=== PATIENT | male | born 1985 | race Two or more races ===

== ENCOUNTER 2020-01-13 10:07 | Outpatient (CLI) | payer OTHER | END 2020-01-13 10:20 | disposition home or self-care (01) | LOC: SONOGRAMA 10:07 → MAMO-SONO 11:45 | PROVIDERS: ATTEND Obstetrics & Gynecology | DX: P00-P96 Certain conditions originating in the perinatal period (principal) ==

== ENCOUNTER → 2020-11-24 | Outpatient (CLI) | payer OTHER | END | disposition home or self-care (01) | LOC: PRENATAL 08:00 → EDSEX 08:08 | PROVIDERS: ATTEND Obstetrics & Gynecology Maternal & Fetal Medicine | DX: O35.0XX1 Maternal care for (suspected) central nervous system malformation in fetus, fetus 1 (principal); O35.3XX1 Maternal care for (suspected) damage to fetus from viral disease in mother, fetus 1; O98.512 Other viral diseases complicating pregnancy, second trimester; O99.891 Other specified diseases and conditions complicating pregnancy; Z36.89 Encounter for other specified antenatal screening; Z3A.19 19 weeks gestation of pregnancy ==

== ENCOUNTER 2021-04-11 18:05 | Inpatient (IN) | payer OTHER ==
[~2021-04-11] VITALS: Ht 160 cm; Wt 3.2 kg
[2021-04-11] MEDS ORDERED: PRENATAL TABLE1 EAC1 PO (20:13)
[2021-04-11] MEDS ORDERED: ZYRTEC10 M3 PO (20:13)
[2021-04-11] MEDS ORDERED: SINGULAIR4 MG PO (20:14)
== END 2021-04-15 15:09 | disposition home or self-care (01) | DRG 788 ==
LOC: LDR 18:05 → OB/GYN 04-12 14:34 → SURG-SUITE 04-12 16:38
PROVIDERS: ADMIT Obstetrics & Gynecology; ATTEND Obstetrics & Gynecology
PROC: 10D00Z1 Extraction of Products of Conception, Low, Open Approach (ICD-10-PCS; principal; 2021-04-11)
PROC: 4A1HXFZ Monitoring of Products of Conception, Cardiac Rhythm, External Approach (ICD-10-PCS; 2021-04-11)
DX: O13.4 Gestational [pregnancy-induced] hypertension without significant proteinuria, complicating childbirth (principal); O82 Encounter for cesarean delivery without indication; N73.6 Female pelvic peritoneal adhesions (postinfective); Z37.0 Single live birth; Z3A.39 39 weeks gestation of pregnancy; Z20.822 Contact with and (suspected) exposure to COVID-19